=== PATIENT | female | born 1995 | race Caucasian/White ===

== ENCOUNTER 2021-09-19 19:33 | Outpatient (REF) | payer SELFPAY ==
--- NOTE | 2021-09-19 15:45 | PAPFT_PTH ---
PATIENT: Susan Martinez LOC: [facility] U#:[id number] AGE/SX: 26/F ROOM: RE09/19/[address]: Maria E Oneal : 1995 BED: DIS: 09/19/2021 SPEC #: [id number] RECD: 09/20/21 12:37 STATUS: TERRELL REQ #: [id number] SAUMYA: 09/19/21 15:[address]: Maria E Oneal DEPT: [facility] Cytology RECD BY: Do Mcpherson ENTERED: 09/20/21 12:37 SP TYPE: PAPFT OTHR DR: Megan Albarado Tissues: 1 - CX/ENDOCX FOR PAP SMEARS Procedures: PAP THIN PREP/[facility] Screening Comments: [id number] (CHLAMYDIA/GC)
[2021-09-21 15:21] LABS: Chlamydia Result Negative (Negative); GC Result Negative (Negative)
== END 2021-09-19 19:34 | disposition home or self-care (01) ==
LOC: NCHCN 19:33
PROVIDERS: Visit Provider Nurse Practitioner Family
DX: Z12.4 Encounter for screening for malignant neoplasm of cervix (principal); Z11.3 Encounter for screening for infections with a predominantly sexual mode of transmission
CPT/HCPCS: 87491; 87591; 88142